=== PATIENT | female | born 1980 ===

== ENCOUNTER 2019-08-22 13:32 | Outpatient (CLI) | payer OTHER | END 2019-08-22 14:55 | disposition home or self-care (01) | LOC: NST 13:32 | DX: Z34.83 Encounter for supervision of other normal pregnancy, third trimester (principal) ==

== ENCOUNTER 2019-08-29 14:01 | Outpatient (CLI) | payer OTHER | END 2019-08-29 15:57 | disposition home or self-care (01) | LOC: NST 14:01 | DX: Z34.83 Encounter for supervision of other normal pregnancy, third trimester (principal) ==

== ENCOUNTER → 2019-09-01 | Outpatient (CLI) | payer OTHER | END | disposition home or self-care (01) | LOC: NST 15:18 | DX: Z34.83 Encounter for supervision of other normal pregnancy, third trimester (principal) ==

== ENCOUNTER 2019-09-05 14:18 | Outpatient (CLI) | payer OTHER | END 2019-09-05 15:17 | disposition home or self-care (01) | LOC: NST 14:18 | DX: Z34.83 Encounter for supervision of other normal pregnancy, third trimester (principal) ==

== ENCOUNTER 2019-09-12 14:55 | Outpatient (CLI) | payer OTHER | END 2019-09-12 15:30 | disposition home or self-care (01) | LOC: NST 14:55 | DX: Z34.83 Encounter for supervision of other normal pregnancy, third trimester (principal) ==

== ENCOUNTER 2019-09-16 08:45 | Outpatient (CLI) | payer OTHER | END 2019-09-16 09:57 | disposition home or self-care (01) | LOC: NST 08:45 | DX: Z34.83 Encounter for supervision of other normal pregnancy, third trimester (principal) ==

== ENCOUNTER 2019-09-18 11:16 | Inpatient (IN) | payer OTHER ==
[~2019-09-18] VITALS: Ht 167.6 cm; Wt 2.7 kg
[2019-09-18] MEDS ORDERED: PRENATAL TABLE1 EAC3 PO (12:12)
== END 2019-09-21 15:35 | DRG 787 ==
LOC: LDR 11:16 → OB/GYN 11:16 → LDR 21:30 → OB/GYN 09-19 21:56
PROVIDERS: ADMIT Obstetrics & Gynecology Maternal & Fetal Medicine
PROC: 4A1HXCZ Monitoring of Products of Conception, Cardiac Rate, External Approach (ICD-10-PCS; 2019-09-18)
PROC: 3E033VJ Introduction of Other Hormone into Peripheral Vein, Percutaneous Approach (ICD-10-PCS; 2019-09-19)
PROC: 4A033R1 Measurement of Arterial Saturation, Peripheral, Percutaneous Approach (ICD-10-PCS; 2019-09-19)
PROC: 10D00Z1 Extraction of Products of Conception, Low, Open Approach (ICD-10-PCS; principal; 2019-09-19 22:00)
DX: O61.0 Failed medical induction of labor (principal); O41.03X1 Oligohydramnios, third trimester, fetus 1; Z3A.39 39 weeks gestation of pregnancy; Z37.0 Single live birth

== ENCOUNTER 2020-06-28 06:56 | Emergency (ER) | payer OTHER ==
[~2020-06-28] VITALS: Ht 167.6 cm; Wt 77.1 kg
[~2020-06-28 06:56] MED LIST: PRENATAL TABLE1 EAC3 PO
== END 2020-06-28 09:51 | disposition home or self-care (01) ==
LOC: ER 06:56
DX: O03.1 Delayed or excessive hemorrhage following incomplete spontaneous abortion (principal)